=== PATIENT | female | born 1990 | race Caucasian/White ===

== ENCOUNTER 2018-01-05 06:47 | Day surgery (SDC) | payer MEDICAID ==
[~2018-01-05 06:47] MED LIST: Lactated Ringers 1,000 ML IV SCH
[2018-01-05] MEDS ORDERED: Propofol 200 MG/20 ML SDV IV ONE (07:50)
--- NOTE | 2018-01-05 08:28 | PCM.OPNOTE ---
- General Post-Op/Procedure Note Date of Surgery/Procedure: 01/05/18 Operative Procedure(s): c scope with bx Findings: normal terminal ileum normal colon Pre Op Diagnosis: hx of diarrhea Post-Op Diagnosis: normal terminal ileum. normal colon Anesthesia Technique: MAC Primary Surgeon: Maxim Stock Anesthesia Provider: Alejandra Ayala Pathology: colon and ileum Complications: None Condition: Good Free Text/Narrative:: see dictation
--- NOTE | 2018-01-05 09:07 | OR ---
DATE OF OPERATION: 01/05/2018 SURGEON: Maxim Stock MD PROCEDURE PERFORMED: Colonoscopy with cold forceps biopsy. PREOPERATIVE DIAGNOSIS: Eight-year history of diarrhea. POSTOPERATIVE DIAGNOSIS: Normal colonoscopy, normal terminal ileum. INDICATIONS FOR PROCEDURE: This is a 27-year-old white female who was referred with an 8-year history of diarrhea. The patient was offered and accepted colonoscopy. DESCRIPTION OF OPERATION: After an excellent IV sedation was administered, digital rectal exam was performed. No marked abnormality was noted. The flexible colonoscope was inserted and advanced to the cecum without difficulty. The terminal ileum was then intubated and the following findings were noted. Terminal ileum unremarkable, random biopsies were taken. Ascending colon unremarkable, random biopsies were taken. Transverse colon unremarkable, random biopsies were taken. Descending colon unremarkable, random biopsies were taken. Sigmoid unremarkable, random biopsies were taken. Rectum unremarkable, random biopsies were taken. The colon was deflated as the scope was removed. The patient tolerated the procedure well and was taken to recovery room in good condition. Results by letter. /[id number] /WALKER
== END 2018-01-05 09:25 | disposition home or self-care (01) ==
LOC: FB.SDS 06:47
PROVIDERS: ATTEND Surgery
DX: R19.7 Diarrhea, unspecified (principal); F17.210 Nicotine dependence, cigarettes, uncomplicated; F41.9 Anxiety disorder, unspecified; Z79.899 Other long term (current) drug therapy
CPT/HCPCS: 45380; 81025; 88305; J2704; J7120